=== PATIENT | female | born 1945 | race Caucasian/White ===

== ENCOUNTER → 2022-01-22 | Outpatient (CLI) | payer MEDICARE ==
[~2022-01-22] MED LIST: FLONASE 0.05% N16 GM; LORTAB 5-325 M1 EACH PO; MAGOX 400400 MG PO; MIRALAX17 GM PO; NAPROXEN 250 M250 MG PO; PROTONIX40 MG PO; TOPROL XL25 MG PO; ULTRACET TABLE1 EACH PO; VITAMIN D250000 UNIT PO; ZOLOFT50 MG PO
== END ==
LOC: KOH-I 15:29
DX: S92.351D Displaced fracture of fifth metatarsal bone, right foot, subsequent encounter for fracture with routine healing (principal); S82.831D Other fracture of upper and lower end of right fibula, subsequent encounter for closed fracture with routine healing
CPT/HCPCS: 73610; 73630

== ENCOUNTER 2022-03-22 09:58 | Inpatient (IN) | payer MEDICARE ==
[~2022-03-22] VITALS: Ht 175.3 cm; Wt 72.6 kg
[~2022-03-22 09:58] MED LIST changes: +VITAMIN D21250 MCG PO; -VITAMIN D250000 UNIT PO
[2022-03-22 11:11] LABS: HEMOGLOBIN 11.6 gm/dl (12.3-15.3); RED BLOOD COUNT 3.89 M/UL (4.00-5.10); WHITE BLOOD COUNT 8.9 K/UL (4.5-11.0)
[2022-03-22 11:36] LABS: BUN/CREATININE RATIO 20 (0-10)
[2022-03-22] MEDS ORDERED: QUETIAPINE FUMA50 MG PO (16:39)
[2022-03-22] MEDS ORDERED: TRAVOPROST2.5 ML OU (16:39)
[2022-03-22] MEDS ORDERED: ATORVASTATIN CA40 MG PO (16:41)
[2022-03-22] MEDS ORDERED: ASPIRIN 325MG325 MG PO (16:41)
[2022-03-22] MEDS ORDERED: NITROGLYCERIN0.4 MG SL (16:42)
--- NOTE | 2022-03-22 17:58 | NUR ---
PT APPEARS NOTTO BE ABLE TO HEAR MORE THAN CONFUSED.
[2022-03-23 06:34] LABS: HEMOGLOBIN 11.3 gm/dl (12.3-15.3); RED BLOOD COUNT 3.84 M/UL (4.00-5.10)
[2022-03-23 06:54] LABS: BUN/CREATININE RATIO 19 (0-10)
--- NOTE | 2022-03-23 15:03 | NUR ---
PATIENT HAD INCREASED AGITATION AND CONFUSION THIS MORNING. MD MADE AWARE. MEDICATIONS ORDERED AND ADMINISTERED. PATIENT RESTING COMFORTABLE IN BED. BED ALARM ON.
[2022-03-24 06:35] LABS: HEMOGLOBIN 12.6 gm/dl (12.3-15.3); WHITE BLOOD COUNT 6.8 K/UL (4.5-11.0)
[2022-03-24 06:39] LABS: RED BLOOD COUNT 4.25 M/UL (4.00-5.10)
[2022-03-24 06:55] LABS: BUN/CREATININE RATIO 16 (0-10)
[2022-03-25 06:45] LABS: HEMOGLOBIN 11.4 gm/dl (12.3-15.3); WHITE BLOOD COUNT 5.9 K/UL (4.5-11.0)
[2022-03-25 06:47] LABS: RED BLOOD COUNT 3.79 M/UL (4.00-5.10)
[2022-03-25 07:17] LABS: BUN/CREATININE RATIO 14 (0-10)
[2022-03-26 06:54] LABS: HEMOGLOBIN 10.4 gm/dl (12.3-15.3); RED BLOOD COUNT 3.57 M/UL (4.00-5.10); WHITE BLOOD COUNT 6.5 K/UL (4.5-11.0)
[2022-03-26 07:23] LABS: BUN/CREATININE RATIO 12 (0-10)
[2022-03-26] MEDS ORDERED: OMNICEF 300 MG300 MG PO (12:27)
== END 2022-03-26 14:02 | disposition home or self-care (01) | DRG 689 ==
LOC: ER1 09:58 → CDU 13:10 → MED SURG 4 17:08
PROVIDERS: Emergency Medicine; Physician Assistant; ADMIT Internal Medicine
DX: N30.00 Acute cystitis without hematuria (principal); G93.41 Metabolic encephalopathy; Z20.822 Contact with and (suspected) exposure to COVID-19; R44.3 Hallucinations, unspecified; F03.91 Unspecified dementia, unspecified severity, with behavioral disturbance; I25.10 Atherosclerotic heart disease of native coronary artery without angina pectoris; I10 Essential (primary) hypertension; R45.1 Restlessness and agitation; G47.00 Insomnia, unspecified; Z79.01 Long term (current) use of anticoagulants; Z79.82 Long term (current) use of aspirin; Z90.710 Acquired absence of both cervix and uterus; Z98.890 Other specified postprocedural states; Z88.8 Allergy status to other drugs, medicaments and biological substances; Z87.891 Personal history of nicotine dependence; Z82.49 Family history of ischemic heart disease and other diseases of the circulatory system
CPT/HCPCS: 36415; 70450; 71045; 80048; 80053; 80307; 81001; 82140; 82550; 82553; 83735; 84100; 84439; 84443; 84484; 85025; 86140; 87040; 87086; 93005; 96372; 96375; 96376; G0378; J0696; J1200; J1650; J2060; J3486; J7030